=== PATIENT | male | born 1965 | race Caucasian/White ===

== ENCOUNTER → 2016-05-28 | Outpatient (REF) | payer SELFPAY ==
[2016-05-28 12:17] LABS: BASO % 0.5 % (0.0-1.0); EOS # 0.1 K/mm3 (0.0-0.50); LARGE UNSTAINED CELL # 0.2 K/mm3 (0.0-0.4); LYMPH # 1.5 K/mm3 (1.5-4.5); LYMPH % 24.6 % (24.0-44.0); MEAN CORPUSCULAR HEMOGLOBIN 28.8 pg (27.0-33.0); MEAN CORPUSCULAR HGB CONC 31.8 g/dl (32.0-36.5); MEAN CORPUSCULAR VOLUME 90.5 fl (80.0-96.0); MONO # 0.5 K/mm3 (0.0-0.8); MONO % 7.8 % (0.0-5.0); NEUTROPHILS # 3.9 K/mm3 (1.8-7.7); NEUTROPHILS % 63.2 % (36.0-66.0); PLATELET COUNT, AUTOMATED 349 k/mm3 (150-450); RED CELL DISTRIBUTION WIDTH 13.5 % (11.5-14.5); WHITE BLOOD COUNT 6.2 K/mm3 (4.0-10.0)
[2016-05-28 12:34] LABS: ALBUMIN 3.7 GM/DL (3.2-5.2); ALBUMIN/GLOBULIN RATIO 1.12 (1.00-1.93); BILIRUBIN,TOTAL 0.9 MG/DL (0.2-1.0); CALCIUM LEVEL 8.8 MG/DL (8.5-10.1); CREATININE FOR GFR 1.74 MG/DL (0.70-1.30); GLOMERULAR FILTRATION RATE 44.6 (>60); POTASSIUM SERUM 4.4 MEQ/L (3.5-5.1)
== END | disposition home or self-care (01) ==
LOC: M LABDRWAD 12:03
PROVIDERS: ATTEND Physician Assistant
DX: R53.83 Other fatigue (principal)

== ENCOUNTER 2017-06-20 17:20 | Emergency (ER) | payer SELFPAY ==
[2017-06-20] MEDS: MORPHINE 10 MG/ML 1ML VIAL (J2270) IM (18:48)
[2017-06-20] MEDS: METHOCARBAMOL 500 MG TAB PO (18:48)
[2017-06-20] MEDS: PERCOCET 5MG/325MG TAB PO (20:15)
== END 2017-06-20 20:38 | disposition home or self-care (01) ==
LOC: M ED 17:20
DX: M54.16 Radiculopathy, lumbar region (principal); M54.41 Lumbago with sciatica, right side; K21.9 Gastro-esophageal reflux disease without esophagitis; Z88.0 Allergy status to penicillin
CPT/HCPCS: J2270